=== PATIENT | male | born 1955 | race Caucasian/White ===

== ENCOUNTER → 2019-09-06 14:14 | Outpatient (BNVA) | payer MEDICARE, OTHER, SELFPAY | PROVIDERS: Family Provider Family Medicine; PCP Nurse Practitioner Family; Visit Provider Otolaryngology | DX: J31.0 Chronic rhinitis (principal); H60.63 Unspecified chronic otitis externa, bilateral; H90.5 Unspecified sensorineural hearing loss; G47.33 Obstructive sleep apnea (adult) (pediatric); K21.9 Gastro-esophageal reflux disease without esophagitis | CPT/HCPCS: 96372; 99214 ==

== ENCOUNTER 2019-09-28 07:59 | Outpatient (CLI) | payer MEDICARE, OTHER, SELFPAY ==
--- NOTE | 2019-09-28 08:05 | US_ITS ---
WS: [id number] Complete ABDOMINAL ULTRASOUND HISTORY: FATTY LIVER COMPARISON: None available. Liver: 14.0 cm in length. Liver is normal size and echogenicity with no mass or intrahepatic dilatati on. Gallbladder: Normally distended with no gallstones, wall thickening or pericholecystic fluid. Gallbladder wall thickness: 4.0 mm. Pancreas: Not well visualized. CBD: 2.0 mm. Right kidney: 10.4 cm x 6.2 cm x 5.5 cm. No mass, cortical thickening or hydronephrosis. Left kidney: 12.4 cm x 7.1 cm x 6.8 cm. No mass, cortical thickening or hydronephrosis. Spleen: Spleen is slightly enlarged at 13.6 cm. Abdominal aorta and IVC are within normal limits. No ascites. US/US abdomen complete* [id number] IMPRESSION: 1. No cholelithiasis. 2. Spleen is top limits normal size. 3. Abdomen negative.
== END 2019-09-28 08:00 | disposition home or self-care (01) ==
PROVIDERS: Family Provider Family Medicine; PCP Nurse Practitioner Family; Visit Provider Family Medicine
DX: K76.0 Fatty (change of) liver, not elsewhere classified (principal)
CPT/HCPCS: 76700

== ENCOUNTER 2019-10-26 14:10 | Outpatient (CLI) | payer MEDICARE, OTHER, SELFPAY ==
--- NOTE | 2019-10-26 14:20 | USCV_ITS ---
Caio Tena Age: 64 Gender: M : 1955 Exam Date: 10/26/2019 14:28 Ordering Phys: Joaquín Mitchell MD Technologist: Santo Owusu Exam Location: [facility] Indication: ? ENLARGED HEART BP: 130 / 80 HR: 77 Rhythm: Sinus Technical Quality: Fair MEASUREMENTS (Male / Female) Normal Values 2D ECHO LV Diastolic Diameter PLAX 4.6 cm 4.2 - 5.9 / 3.9 - 5.3 cm LV Systolic Diameter PLAX 2.7 cm IVS Diastolic Thickness 1.1 cm 0.6 - 1.0 / 0.6 - 0.9 cm IVS Systolic Thickness 1.6 cm LVPW Diastolic Thickness 1.1 cm 0.6 - 1.0 / 0.6 - 0.9 cm LVPW Systolic Thickness 1.8 cm LVOT Diameter 2.1 cm LV Ejection Fraction 2D Teich 71.7 % LV Ejection Fraction MOD 2C 78.8 % LV Ejection Fraction 2C AL 78.3 % LA Diameter 4.5 cm LA Width 3.9 cm LA Height 3.9 cm RA Width 3.5 cm RA Height 4.4 cm Aorta at Sinotubular Diameter 3.5 cm M-MODE LV Diastolic Diameter MM 4.8 cm 4.2 - 5.9 / 3.9 - 5.3 cm LV Systolic Diameter MM 3.1 cm LV Ejection Fraction MM Teich 65.0 % IVS Diastolic Thickness MM 0.9 cm 0.6 - 1.0 / 0.6 - 0.9 cm IVS Systolic Thickness MM 1.9 cm LVPW Diastolic Thickness MM 1.4 cm 0.6 - 1.0 / 0.6 - 0.9 cm LVPW Systolic Thickness MM 1.8 cm RV Diastolic Diameter MM 2.1 cm Aortic Annulus Diameter 3.8 cm LA Ao Ratio MM 1.2 MV E Point Septal Separation 0.8 cm DOPPLER AV Peak Velocity 132.0 cm/s LVOT Peak Velocity 90.0 cm/s AV Area Cont Eq vti 2.5 cm squared AV Area Cont Eq pk 2.4 cm squared MV Area PHT 5.0 cm squared Mitral E to A Ratio 0.8 MV E' Velocity 10.0 cm/s Mitral E to MV E' Ratio 7.5 Mitral E to LV E' Lateral Ratio 6.2 Mitral E to LV E' Septal Ratio 9.4 TR Peak Velocity 258.0 cm/s TR Peak Gradient 26.6 mmHg Right Atrial Pressure 3.0 mmHg Pulmonary Artery Systolic Pressu 29.6 mmHg FINDINGS Left Ventricle Normal left ventricular cavity size. Normal left ventricular systolic function. No regional wall motion abnormalities. Left ventricular ejection fraction is estimated at 65 %. Abnormal (paradoxical) septal motion consistent with postoperative status or conduction abnormality. Right Ventricle The right ventricle is normal in size and function. Right Atrium The right atrium is normal in size. Left Atrium The left atrium is normal in size. Mitral Valve Structurally normal mitral valve without significant stenosis or prolapse. There is no mitral regurgitation. Aortic Valve Structurally normal aortic valve without significant sclerosis or stenosis. There is no aortic regurgitation. Tricuspid Valve Trace tricuspid valve regurgitation. Pulmonic Valve Structurally normal pulmonic valve without significant stenosis. There is no pulmonic regurgitation. Pericardium Normal pericardium without effusion. Aorta Normal ascending aorta dimension. CONCLUSIONS 1-Normal left ventricular cavity size. Normal left ventricular systolic function. No regional wall motion abnormalities. Left ventricular ejection fraction is estimated at 65 %. Abnormal (paradoxical) septal motion consistent with postoperative status or conduction abnormality. 2-There is no pericardial effusion. 3-Pulmonary artery systolic pressure is within normal limits. 4-No significant valve abnormalities. 5-Right atrial pressure is around 5 mm of mercury. 6-No significant change since the prior echocardiogram study of. 03/16/2017. Caity Temple MD (Electronically Signed) Final Date: 26 October 2019 16:18 S
--- NOTE | 2019-10-26 14:20 | CT_ITS ---
WS: [id number] CT CHEST TECHNIQUE: Noncontrast CT of the chest with coronal and sagittal reformatted images. CLINICAL INFORMATION: PULMONARY NODULE COMPARISON: September 21, 2018 DLP: 1043.[address] scans at [facility] use at least one of these dose optimization techniques: automat ed exposure control; mA and/or kV adjustment per patient size (includes targeted exams where dose is matched to clinical indication); or iterative reconstruction. FINDINGS: Again seen are several noncalcified subcentimeter pulmonary nodules in the left lower lobe measuring 5 mm, groundglass nodules right lower lobe laterally measuring 6 mm and 4 mm respectively. Additional submillimeter noncalcified subpleural nodule in the lingula measuring 7 mm is unchanged. Mild chronic emphysematous changes. No acute pulmonary infiltrates. Coronary calcification. Aortic ca lcification. No mediastinal or hilar lymphadenopathy. Normal GE junction. Adrenal glands are normal. Several partially visualized hepatic cysts appears unchanged. No axillary lymphadenopathy. Thoracic curve. CT/CT chest wo con [id number] IMPRESSION: 1. Stable subcentimeter noncalcified pulmonary nodules in the left lower lobe and right lower lobe laterally unchanged. 2. Additional subpleural nodule in the lingula measuring 7 mm unchanged. 3. No acute pulmonary infiltrates. 4. No mediastinal or hilar lymphadenopathy. 5. Stable partially visualized hepatic cysts.
== END 2019-10-26 14:11 | disposition home or self-care (01) ==
LOC: CT 14:15
PROVIDERS: Family Provider Family Medicine; PCP Nurse Practitioner Family; Visit Provider Family Medicine
DX: I07.1 Rheumatic tricuspid insufficiency (principal); R91.8 Other nonspecific abnormal finding of lung field; K76.89 Other specified diseases of liver
CPT/HCPCS: 71250; 93306

== ENCOUNTER 2020-02-29 13:48 | Outpatient (CLI) | payer MEDICARE, OTHER, SELFPAY ==
--- NOTE | 2020-02-29 14:15 | USCV_ITS ---
Caio Tena Age: 64 Gender: M : 1955 Exam Date: 02/29/2020 13:51 Ordering Phys: Caity Temple MD ([email or web address]) Technologist: Santo Owusu Exam Location: [facility] – [place] Indication: LIFESTYLE LIMITING CLAUDICATION RIGHT LEFT Brachial 148.00 mmHg Brachial 138.00 mmHg Pressure (mmHg) Waveform Pressure (mmHg) Waveform 160.00 ANNUAL GIVING MANAGER 166.00 142.00 DPA 151.00 0.96 Ankle/Brachial Index 1.02 0.91 Pre-Exercise Toe Pressure 0.99 FINDINGS Normal resting ABIs laterally Normal resting TBI bilaterally CONCLUSIONS No significant arterial obstruction, based on the above findings Dr Clementina Lee MD [facility] (Electronically Signed) Final Date: 29 February 2020 20:33 S
== END 2020-02-29 13:49 | disposition home or self-care (01) ==
LOC: RAD 13:53
PROVIDERS: Visit Provider Internal Medicine Cardiovascular Disease
DX: I73.9 Peripheral vascular disease, unspecified (principal)
CPT/HCPCS: 93922

== ENCOUNTER 2020-04-11 09:41 | Outpatient (RCR) | payer MEDICARE, OTHER, SELFPAY | END 2020-04-21 23:59 | disposition home or self-care (01) | LOC: SPT 09:41 | PROVIDERS: Referring Provider Family Medicine; Visit Provider Family Medicine | DX: M47.817 Spondylosis without myelopathy or radiculopathy, lumbosacral region (principal) | CPT/HCPCS: 97032; 97110; 97161 ==

== ENCOUNTER 2020-04-22 06:00 | Outpatient (RCR) | payer MEDICARE, OTHER, SELFPAY | END 2020-05-21 23:59 | disposition home or self-care (01) | LOC: SPT 06:00 | PROVIDERS: Referring Provider Family Medicine; Visit Provider Family Medicine | DX: M47.817 Spondylosis without myelopathy or radiculopathy, lumbosacral region (principal) | CPT/HCPCS: 97032; 97110 ==

== ENCOUNTER 2020-07-14 06:48 | Outpatient (CLI) | payer MEDICARE, OTHER, SELFPAY ==
--- NOTE | 2020-07-14 06:56 | US_ITS ---
WS: [id number] Complete ABDOMINAL ULTRASOUND HISTORY: PANCYTOPENIA COMPARISON: 09/28/2019 Liver: 20.4 cm in length. Moderately enlarged liver with severe hepatic steatosis. Portions of the li bharati are not well visualized due to attenuation. No bile duct dilatation. Simple cyst in the central R IGHT lobe with a maximum diameter of 1.9 cm. Gallbladder: Normally distended with no gallstones, wall thickening or pericholecystic fluid. Gallbladder wall thickness: 0.2 cm. Pancreas: Normal size and echogenicity. CBD: 0.6 cm. Right kidney: 11.0 cm x 5.4 cm x 7.3 cm. No mass, cortical thickening or hydronephrosis. Left kidney: 11.0 cm x 4.3 cm x 5.6 cm. No mass, cortical thickening or hydronephrosis. Spleen: Enlarged spleen measuring 14.8 cm. Spleen has slightly increased in size since 09/28/2019. Abdominal aorta and IVC are within normal limits. No ascites. US/US abdomen complete* [id number] IMPRESSION: 1. Mild splenomegaly. Spleen has increased in size slightly since 09/28/2019. 2. Moderate hepatomegaly and marked hepatic steatosis. Findings are new since 09/28/2019.
== END 2020-07-14 06:49 | disposition home or self-care (01) ==
LOC: US 06:50 → RAD 07:07
PROVIDERS: Visit Provider Family Medicine
DX: D61.818 Other pancytopenia (principal); R16.1 Splenomegaly, not elsewhere classified; R16.0 Hepatomegaly, not elsewhere classified; K76.0 Fatty (change of) liver, not elsewhere classified
CPT/HCPCS: 76700

== ENCOUNTER 2020-11-17 10:56 | Outpatient (CLI) | payer MEDICARE, OTHER, SELFPAY ==
--- NOTE | 2020-11-17 11:04 | CT_ITS ---
WS: [id number] LDCT LUNG CANCER SCREENING HISTORY: HX OF TOBACCO USE TECHNIQUE: Axial imaging performed from the apices to 1 cm below the costophrenic angles. Coronal and sagittal reformats are submitted with axial MIP series. All CT scans at [facility] use at least one of these dose optimization techniques: automated exposure control; mA and/or kV adjustment per patient size (includes targeted exams where dose is matched to clinical indication); or iterativ e reconstruction. DLP: 60.52 mGy.cm DIvol: 1.58 mGy COMPARISON: 10/26/2019, 01/16/2016 Diagnostic quality: Satisfactory Lung Nodules: There are several bilateral pulmonary nodules. These nodules have been present since without increase in size of any significance. 5 mm nodule image 109 of series 3 RIGHT lung. RIGHT lower lobe nodule 4 mm, image 176 of series 3. 6 mm RIGHT lower lobe nodule, image 187 of series 3. Lingular nodule 5 mm, image 40 series 601. 5 mm nodule LEFT lower lobe 182 series 3. 5 mm nodule LEFT lower lobe image 167 series 3. Lungs: Mild emphysema. Heart: Normal size heart. Moderate coronary vascular calcifications. Other findings: Mild atherosclerosis aorta. CT/CT lung screening [id number] IMPRESSION: LUNG-RADS: 2-Benign Appearance or Behavior FOLLOW UP: 12 Month: Continue annual screening with LDCT OTHER FINDINGS (S MODIFIER): None.
== END 2020-11-17 10:57 | disposition home or self-care (01) ==
PROVIDERS: PCP Family Medicine; Visit Provider Family Medicine
DX: Z12.2 Encounter for screening for malignant neoplasm of respiratory organs (principal); Z87.891 Personal history of nicotine dependence; I70.0 Atherosclerosis of aorta
CPT/HCPCS: 71271

== ENCOUNTER 2020-12-01 10:07 | Outpatient (CLI) | payer MEDICARE, OTHER, SELFPAY ==
--- NOTE | 2020-12-01 10:09 | MM_ITS ---
WS: [id number] BILATERAL DIGITAL DIAGNOSTIC MAMMOGRAM MAMMOGRAPHY WITH CAD CLINICAL INFORMATION: BREAST TENDERNESS HISTORY: COMPARISON: TECHNIQUE: Bilateral CC, MLO, and ML views. FINDINGS: Scattered fibroglandular densities bilaterally. Palpable marker right breast. Dense breast tissue underlying the palpable marker in the subareolar di stribution. This is new compared to 2018 and asymmetric compared to the left. Ultrasound is pending. Left breast is similar in appearance to 2018. ULTRASOUND BREAST BILATERAL TECHNIQUE: Ultrasound bilateral breast focused area of concern. CLINICAL INFORMATION: BREAST TENDERNESS COMPARISON: None. FINDINGS: Prominent dense hypoechoic breast tissue right breast at the areola. This is in a subareolar distribu tion with some increased vascularity. No well-circumscribed cystic or solid lesion. Similar-appearing hypoechoic left breast tissue but much less extensive compared to the right. FINDINGS ARE MOST COMPATIBLE WITH RIGHT BREAST GYNECOMASTIA. MASTITIS CAN HAVE A SIMILAR APPEARANCE A ND RECOMMEND CORRELATION FOR INFECTION. MM/[place] [id number] IMPRESSION: BI-RADS: 2-Benign FOLLOW UP: See Report
== END 2020-12-01 10:08 | disposition home or self-care (01) ==
LOC: RADSHAW 10:09
PROVIDERS: PCP Family Medicine; Visit Provider Family Medicine
DX: N64.4 Mastodynia (principal)
CPT/HCPCS: 76642; 77066

== ENCOUNTER 2021-02-02 14:28 | Outpatient (CLI) | payer MEDICARE, OTHER, SELFPAY ==
--- NOTE | 2021-02-02 14:33 | XR_ITS ---
WS: [id number] Exam: XR hip LT 2-3V wo/w pel* [id number] Date/Time of Exam: 02/02/2021 2:39 PM Reason For Exam: HIP PAIN No fracture or dislocation. Moderate degenerative change of the joint compartment. Normal soft tissue s. Decompression laminectomy and interbody fusion partially visualized involving the lumbosacral spin e. Impression 1. Moderate DJD. No fracture or dislocation.
== END 2021-02-02 14:29 | disposition home or self-care (01) ==
PROVIDERS: PCP Family Medicine; Visit Provider Family Medicine
DX: M25.552 Pain in left hip (principal); M16.12 Unilateral primary osteoarthritis, left hip
CPT/HCPCS: 73502

== ENCOUNTER 2021-03-19 07:53 | Outpatient (CLI) | payer MEDICARE, OTHER, SELFPAY ==
--- NOTE | 2021-03-19 08:00 | US_ITS ---
WS: [id number] ULTRASOUND ABDOMEN CLINICAL INFORMATION: STEALOSIS OF LIVER COMPARISON: None. FINDINGS: Liver Size: Enlarged Craniocaudal length: 18.3 cm. Echogenicity: Diffuse fatty infiltration of the liver Surface nodularity: None. Mass (size and location): Slightly complex hepatic cyst measuring 2.7 x 1.7 x 1.7 cm unchanged from t he prior ultrasound July 14, 2020 Bile ducts Intrahepatic ducts: Normal. Common bile duct diameter: 0.5 cm. Gallbladder Normal. Gallstones: None. Gallbladder sludge: None. Gallbladder wall thickening: None. Pericholecystic fluid: None. Sonographic Wadsworth sign: Absent. Pancreas Normal as visualized. Spleen Splenomegaly: Enlarged Craniocaudal length: 13.7 cm. Right kidney: Simple right mid renal cyst measuring 1.9 x 1.4 1.8 cm Hydronephrosis: None. Size: 10.4 cm x 5.0 cm x 5.3 cm Left kidney: Normal. Hydronephrosis: None. Size: 12.7 cm x 4.3 cm x 6.2 cm. Abdominal aorta and IVC Visualized portions are normal. Ascites: None. US/US abdomen complete* [id number] IMPRESSION: 1. Hepatomegaly with diffuse fatty infiltration. 2. Mild splenomegaly. 3. Normal gallbladder. 4. Slightly complex hepatic cyst measuring 2.7 x 1.7 x 1.7 cm unchanged from t he prior ultrasound July 14, 2020. Multiple hepatic cysts visualized on kirk or chest CT October 26, 2019. 5. Simple right mid renal cyst measuring 1.9 x 1.4 1.8 cm
== END 2021-03-19 07:54 | disposition home or self-care (01) ==
PROVIDERS: PCP Family Medicine; Visit Provider Family Medicine
DX: K76.0 Fatty (change of) liver, not elsewhere classified (principal); R16.0 Hepatomegaly, not elsewhere classified; K76.89 Other specified diseases of liver; N28.1 Cyst of kidney, acquired
CPT/HCPCS: 76700

== ENCOUNTER 2021-03-25 06:00 | Outpatient (RCR) | payer MEDICARE, OTHER, SELFPAY | END 2021-04-21 23:59 | disposition home or self-care (01) | LOC: SPT 06:00 | PROVIDERS: PCP Family Medicine; Referring Provider Surgery; Visit Provider Surgery | DX: M54.10 Radiculopathy, site unspecified (principal); Z98.1 Arthrodesis status; M48.061 Spinal stenosis, lumbar region without neurogenic claudication | CPT/HCPCS: 97110; 97162 ==

== ENCOUNTER → 2021-04-02 10:06 | Outpatient (BNVA) | payer MEDICARE, OTHER, SELFPAY | PROVIDERS: PCP Family Medicine; Visit Provider Podiatrist Foot & Ankle Surgery | DX: M79.671 Pain in right foot (principal); L60.0 Ingrowing nail; M19.071 Primary osteoarthritis, right ankle and foot | CPT/HCPCS: 73630 ==

== ENCOUNTER 2021-04-22 06:00 | Outpatient (RCR) | payer MEDICARE, OTHER, SELFPAY | END 2021-05-21 23:59 | disposition home or self-care (01) | LOC: SPT 06:00 | PROVIDERS: PCP Family Medicine; Referring Provider Surgery; Visit Provider Surgery | DX: M54.10 Radiculopathy, site unspecified (principal); Z98.1 Arthrodesis status; M48.061 Spinal stenosis, lumbar region without neurogenic claudication | CPT/HCPCS: 97110 ==

== ENCOUNTER 2021-06-23 10:43 | Outpatient (CLI) | payer MEDICARE, OTHER, SELFPAY ==
--- NOTE | 2021-06-23 11:14 | XR_ITS ---
WS: [id number] LUMBAR SPINE: 5 VIEWS TECHNIQUE: AP, lateral, and L5-S1 spot. Lateral views in neutral, flexion and extension. HISTORY: S/P SPINAL arthrodesis, BACK PAIN, LUMBAR STENOSIS COMPARISON: None available. Posterior lumbar fusion extends from L2 to S1. Hardware is intact. No lucency around the screws. No c hange in position of alignment with flexion and extension of the hardware. L2 retrolisthesis by 8mm d ecreases to 6 mm during flexion and extension. L3 retrolisthesis by 7 mm decreases to 4 mm during fle xion and 5 mm during extension. Asymmetric disc space narrowing at L1-2 Mild narrowing of the SI joints. Large laminectomy defects are noted from L2 to L5. Moderate atherosclerosis aorta. XR/XR lumbar spine min 4V [id number] IMPRESSION: 1. Extensive posterior lumbar fusion from L2 to S1. 2. Severe facet joint arthritis at L5-S1. 3. Large laminectomy defects from L2 to L5. 4. Mild flexion and extension instability at L2 and L3.
== END 2021-06-23 10:44 | disposition home or self-care (01) ==
PROVIDERS: PCP Family Medicine; Visit Provider Nurse Practitioner Family
DX: Z98.1 Arthrodesis status (principal); M47.817 Spondylosis without myelopathy or radiculopathy, lumbosacral region; M53.2X6 Spinal instabilities, lumbar region
CPT/HCPCS: 72110

== ENCOUNTER 2021-08-13 08:04 | Outpatient (CLI) | payer MEDICARE, OTHER, SELFPAY ==
--- NOTE | 2021-08-13 08:38 | XR_ITS ---
WS: [id number] THORACIC SPINE TECHNIQUE: 3 views of the thoracic spine CLINICAL INFORMATION: ACUTE MIDLINE THORACIC BACK PAIN COMPARISON: None. FINDINGS: Mild thoracic curve. Mild disc space narrowing in the lower thoracic spine. No acute appearing compre ssion fractures. No acute thoracic spine findings. XR/XR thoracic spine 2V [id number] IMPRESSION: No acute thoracic spine findings.
== END 2021-08-13 08:05 | disposition home or self-care (01) ==
PROVIDERS: PCP Family Medicine; Visit Provider Family Medicine
DX: M54.6 Pain in thoracic spine (principal)
CPT/HCPCS: 72070

== ENCOUNTER 2021-11-19 10:29 | Outpatient (CLI) | payer MEDICARE, OTHER, SELFPAY ==
--- NOTE | 2021-11-19 10:30 | IR_ITS ---
WS: [id number] MYELOGRAM LUMBAR SPINE Fluoroscopic guided lumbar myelogram CLINICAL INFORMATION: M54.9 - Dorsalgia, unspecified COMPARISON: None. TECHNIQUE: The procedure, including risks, benefits, and complications, were discussed with the patie nt who agreed to proceed. A timeout was performed to confirm correct patient, procedure, and site. Using sterile technique, the patient was prepped and draped in the usual sterile fashion. After admin istration of local anesthesia using 1% preservative-free lidocaine a 5 inch 22-gauge spinal needle wa s advanced towards the subarachnoid space at the L3-L4 level. I could not achieve intrathecal flow at this level. L2-L3 level was then selected. Using fluoroscopic guidance, a 22-gauge spinal needle was advanced int o the subarachnoid space at the L2-L3 level. Subsequently 13 cc of Omnipaque 240 was administered int o the thecal sac. The needle was removed and hemostasis was achieved. Spot fluoroscopic images were o btained. FLUOROSCOPIC TIME: 6.2 minutes. # of spot films: 4. Spot fluoroscopic images demonstrate interval postoperative changes pedicle screw fixation L2-L5 with interconnecting rods dorsally. Dorsal lateral bony fusion with laminectomy defects. Hardware appears intact. See impression for additional fluoroscopy detail. IR/IR myelogram sp lumbar [id number] IMPRESSION: 1. Uncomplicated lumbar myelogram at the L2-L3 level. 2. Interval postoperative changes pedicle screw fixation with dorsolateral bon y fusion is new from previous. Hardware appears intact. 3. Degenerative disc disease throughout the lumbar spine appears slightly prog ressed compared to previous. 4. Increased loss of disc space height at L1-L2 with vacuum disc phenomenon an d slight kyphosis at this level. 5. Slight retrolisthesis L2 on L3, L3 on L4 and L4 on L5. Mild instability at the L2-L3 L3-L4 and L4-L5 levels with flexion extension. 6. Aortic calcification. 7. Laminectomy defects L2-L5.
--- NOTE | 2021-11-19 10:41 | CT_ITS ---
WS: [id number] CT LUMBAR SPINE TECHNIQUE: Contrast-enhanced CT of the lumbar spine with coronal and sagittal reformatted images. CLINICAL INFORMATION: DORSALGIA, UNSPECIFIED COMPARISON: Myelogram September 03, 2020 DLP: 1377.[address] scans at [facility] use at least one of these dose optimization techniques: automated e xposure control; mA and/or kV adjustment per patient size (includes targeted exams where dose is matc hed to clinical indication); or iterative reconstruction. FINDINGS: Satisfactory opacification of the thecal sac. Small amount of epidural contrast injection a t the L2 level. Postoperative changes are new compared to previous. Pedicle screw fixation L2-L5 with interconnecting rods. Dorsal laminectomy defects. Dorsolateral bone graft material. No evidence of screw loosening. Interconnecting rods appear intact. Clumping of the cauda equina nerve rootlets centrally L2-L4 appea rs new compared to September 03, 2020 suspicious for arachnoiditis. Degenerative disc disease at L2-L3 and L3-L4 appears progressed compared to previous. Trace anterolisthesis L4 on L5. L1-L2: Disc desiccation with vacuum disc phenomenon. Mild disc bulging. Slight effacement of ventral thecal sac. Mild to moderate LEFT and no significant RIGHT foraminal narrowing. Small LEFT foraminal protrusion. Moderate facet arthropathy with ligamentum flavum flavum hypertrophy. L2-L3: Postoperative changes. Disc osteophyte complex with endplate ridging. Spinal canal has been de compressed with laminectomy defects. Foramen are patent. L3-L4: Disc osteophyte complex endplate ridging. Postoperative changes laminectomy defects. Spinal ca nal is patent. Mild LEFT and no significant RIGHT foraminal narrowing. Moderate facet arthropathy. L4-L5: Pedicle screw fixation laminectomy defects. Spinal canal is patent. Mild LEFT foraminal narrow ing. L5-S1: Postoperative changes with laminectomy defects. Spinal canal is patent. Vacuum disc phenomenon . Mild to moderate bilateral bony foraminal narrowing. Moderate facet arthropathy. Visualized lung bases are well aerated. Lobulated infrarenal abdominal aorta with eccentric ulcerated plaque or pseudoaneurysm just above the bifurcation. This can be followed up with CTA Abdominal aort a. Ectatic aorta measures 2.3 x 2.6 cm AP by transverse. Partially visualized adrenal glands appear n ormal. Visualized pelvic bony structures: Normal. Paravertebral soft tissues: Normal. CT/CT lumbar spine w con [id number] IMPRESSION: 1. Interval postoperative changes pedicle screw fixation L2-S1. Hardware and i nterconnecting rods appear intact. No evidence of screw loosening. 2. Sparse dorsal lateral bony fusion appears immature or incomplete. No bony b ridging across the disc spaces. 3. Increased disc desiccation L1-L2 with vacuum disc phenomenon and slight rev ersal of the normal lumbar lordosis with slight kyphosis above the fusion. 4. Decompressive laminectomies throughout the lumbar spine L2-L5 with spinal c anal decompression. 5. Clumping of the cauda equina nerve rootlets centrally suspicious for arachn oiditis L2-L4 new compared to the prior myelogram in 2020. 6. Bony foraminal narrowing worse L5-S1 with mild to moderate bilateral bony f oraminal narrowing encroaches on the exiting L5 nerve roots bilaterally. 7. Small LEFT foraminal protrusion L1-L2 with mild to moderate LEFT foraminal narrowing. Recommend correlation with L1 nerve root symptoms. 8. Mild LEFT L3-L4 and LEFT L4-L5 foraminal narrowing. 9. Moderate facet arthropathy throughout the lumbar spine L2-L5. 10. Small pseudoaneurysm or ulcerated atheromatous plaque in the infrarenal ab dominal aorta. Slightly ectatic lobulated infrarenal abdominal aorta measuring 2.6 x 2.3 CM. This can be followed up with CTA abdominal aorta. This appears un changed since prior myelogram September 03, 2020
[2021-11-19] MEDS: iohexol 240 mg/mL 50 mL Btl INTRATHECA (11:56)
== END 2021-11-19 10:30 | disposition home or self-care (01) ==
LOC: RAD 10:35
PROVIDERS: PCP Family Medicine; Visit Provider Orthopaedic Surgery
DX: M54.9 Dorsalgia, unspecified (principal); G89.29 Other chronic pain; Z98.1 Arthrodesis status; M51.26 Other intervertebral disc displacement, lumbar region; M47.896 Other spondylosis, lumbar region; M51.36 Other intervertebral disc degeneration, lumbar region; M53.2X6 Spinal instabilities, lumbar region; I70.0 Atherosclerosis of aorta
CPT/HCPCS: 62304; 72120; 72132

== ENCOUNTER → 2021-12-02 07:42 | Outpatient (BNVA) | payer MEDICARE, OTHER, SELFPAY | PROVIDERS: PCP Family Medicine; Visit Provider Podiatrist Foot & Ankle Surgery | DX: M20.21 Hallux rigidus, right foot (principal); M92.62 Juvenile osteochondrosis of tarsus, left ankle; Z87.891 Personal history of nicotine dependence | CPT/HCPCS: 73630; 99213; 99214 ==

== ENCOUNTER → 2021-12-03 10:36 | Outpatient (BNVA) | payer MEDICARE, OTHER, SELFPAY | PROVIDERS: PCP Family Medicine; Visit Provider Orthopaedic Surgery | DX: M48.02 Spinal stenosis, cervical region (principal); M40.209 Unspecified kyphosis, site unspecified | CPT/HCPCS: 99214 ==

== ENCOUNTER → 2021-12-09 08:23 | Outpatient (BNVA) | payer MEDICARE, OTHER, SELFPAY | PROVIDERS: PCP Family Medicine; Referring Provider Orthopaedic Surgery; Visit Provider Anesthesiology Pain Medicine | DX: G89.29 Other chronic pain (principal); M54.2 Cervicalgia; M79.601 Pain in right arm; M79.602 Pain in left arm; M54.50 Low back pain, unspecified; Z87.891 Personal history of nicotine dependence; Z79.891 Long term (current) use of opiate analgesic | CPT/HCPCS: 99205 ==

== ENCOUNTER 2022-01-13 12:07 | Outpatient (CLI) | payer MEDICARE, OTHER, SELFPAY ==
--- NOTE | 2022-01-13 12:21 | CT_ITS ---
WS: [id number] LDCT LUNG CANCER SCREENING HISTORY: PULMONARY NODULE TECHNIQUE: Axial imaging performed from the apices to 1 cm below the costophrenic angles. Coronal and sagittal reformats are submitted with axial MIP series. All CT scans at [facility] use at least one of these dose optimization techniques: automated exposure control; mA and/or kV adjustment per patient size (includes targeted exams where dose is matched to clinical indication); or iterativ e reconstruction. DLP: 92.07 mGy.cm DIvol: Mean CTDIvol: 1.60 (mGy) COMPARISON: 11/17/2020 Diagnostic quality: Satisfactory Lung Nodules: Bilateral subcentimeter pulmonary nodules are stable since 2016. None of the nodules wh ich have been previously described has increased in size. Some of these nodules actually appears smal ler. Lungs: Hyperinflation. Heart: Normal size heart. No pericardial effusion. Extensive coronary artery calcifications. Other findings: Small hiatal hernia. Hepatic cysts. No adrenal mass. CT/CT lung screening [id number] IMPRESSION: LUNG-RADS: 2-Benign Appearance or Behavior FOLLOW UP: 12 Month: Continue annual screening with LDCT OTHER FINDINGS (S MODIFIER): None.
== END 2022-01-13 12:08 | disposition home or self-care (01) ==
LOC: RAD 12:11
PROVIDERS: PCP Family Medicine; Visit Provider Family Medicine
DX: Z12.2 Encounter for screening for malignant neoplasm of respiratory organs (principal); Z87.891 Personal history of nicotine dependence; R91.8 Other nonspecific abnormal finding of lung field
CPT/HCPCS: 71271

== ENCOUNTER → 2022-02-23 12:03 | Outpatient (BNVA) | payer MEDICARE, OTHER, SELFPAY | PROVIDERS: PCP Family Medicine; Visit Provider Internal Medicine Cardiovascular Disease | DX: I25.10 Atherosclerotic heart disease of native coronary artery without angina pectoris (principal); I10 Essential (primary) hypertension; I73.9 Peripheral vascular disease, unspecified; G47.33 Obstructive sleep apnea (adult) (pediatric); Z87.891 Personal history of nicotine dependence | CPT/HCPCS: 99213 ==

== ENCOUNTER → 2022-03-08 08:45 | Outpatient (BNVA) | payer MEDICARE, OTHER, SELFPAY | PROVIDERS: PCP Family Medicine; Visit Provider Anesthesiology Pain Medicine | DX: G89.29 Other chronic pain (principal); M54.2 Cervicalgia; M54.9 Dorsalgia, unspecified; M79.601 Pain in right arm; M79.602 Pain in left arm; Z87.891 Personal history of nicotine dependence; Z79.891 Long term (current) use of opiate analgesic | CPT/HCPCS: 99214 ==

== ENCOUNTER → 2022-04-01 10:46 | Outpatient (BNVA) | payer MEDICARE, OTHER, SELFPAY | PROVIDERS: PCP Family Medicine; Visit Provider Family Medicine | DX: I25.10 Atherosclerotic heart disease of native coronary artery without angina pectoris (principal); I10 Essential (primary) hypertension; K21.9 Gastro-esophageal reflux disease without esophagitis; G47.33 Obstructive sleep apnea (adult) (pediatric); M54.2 Cervicalgia; M54.9 Dorsalgia, unspecified; G89.29 Other chronic pain; M10.9 Gout, unspecified; E11.9 Type 2 diabetes mellitus without complications | CPT/HCPCS: 80053; 80061; 83036; 84443; 84550; 85025 ==

== ENCOUNTER → 2022-06-08 08:48 | Outpatient (BNVA) | payer MEDICARE, OTHER, SELFPAY | PROVIDERS: PCP Family Medicine; Visit Provider Anesthesiology Pain Medicine | DX: G89.29 Other chronic pain (principal); M54.2 Cervicalgia; M54.50 Low back pain, unspecified; M79.601 Pain in right arm; M79.602 Pain in left arm | CPT/HCPCS: 99213 ==

== ENCOUNTER → 2022-08-31 12:34 | Outpatient (BNVA) | payer MEDICARE, OTHER, SELFPAY | PROVIDERS: PCP Family Medicine; Visit Provider Internal Medicine Cardiovascular Disease | DX: I25.10 Atherosclerotic heart disease of native coronary artery without angina pectoris (principal); F41.1 Generalized anxiety disorder; F41.0 Panic disorder [episodic paroxysmal anxiety]; I73.9 Peripheral vascular disease, unspecified; I10 Essential (primary) hypertension; G47.33 Obstructive sleep apnea (adult) (pediatric); Z87.891 Personal history of nicotine dependence | CPT/HCPCS: 99213 ==

== ENCOUNTER → 2022-11-22 09:36 | Outpatient (BNVA) | payer MEDICARE, OTHER, SELFPAY | PROVIDERS: PCP Family Medicine; Visit Provider Family Medicine | DX: F41.1 Generalized anxiety disorder (principal); F41.0 Panic disorder [episodic paroxysmal anxiety]; D51.0 Vitamin B12 deficiency anemia due to intrinsic factor deficiency; I10 Essential (primary) hypertension; M1A.09X0 Idiopathic chronic gout, multiple sites, without tophus (tophi); Z12.5 Encounter for screening for malignant neoplasm of prostate | CPT/HCPCS: 80053; 80061; 82607; 84550; 85025; G0103 ==

== ENCOUNTER → 2023-01-25 09:17 | Outpatient (BNVA) | payer MEDICARE, OTHER, SELFPAY | PROVIDERS: PCP Family Medicine; Visit Provider Anesthesiology Pain Medicine | DX: G89.29 Other chronic pain (principal); M54.2 Cervicalgia; M48.07 Spinal stenosis, lumbosacral region | CPT/HCPCS: 99214 ==

== ENCOUNTER → 2023-02-15 12:30 | Outpatient (BNVA) | payer MEDICARE, OTHER, SELFPAY | PROVIDERS: PCP Family Medicine; Visit Provider Anesthesiology Pain Medicine | DX: M47.816 Spondylosis without myelopathy or radiculopathy, lumbar region (principal); M54.2 Cervicalgia; G89.29 Other chronic pain | CPT/HCPCS: 64490; 64491; 64493; J3490 ==

== ENCOUNTER → 2023-03-01 12:57 | Outpatient (BNVA) | payer MEDICARE, OTHER, SELFPAY | PROVIDERS: PCP Family Medicine; Visit Provider Anesthesiology Pain Medicine | DX: G89.29 Other chronic pain (principal); M47.814 Spondylosis without myelopathy or radiculopathy, thoracic region; M54.2 Cervicalgia | CPT/HCPCS: 64490; 64491; 64492; J3490 ==

== ENCOUNTER → 2023-03-07 09:53 | Outpatient (BNVA) | payer MEDICARE, OTHER, SELFPAY | PROVIDERS: PCP Family Medicine; Visit Provider Family Medicine | DX: I25.10 Atherosclerotic heart disease of native coronary artery without angina pectoris (principal); I10 Essential (primary) hypertension; Z12.2 Encounter for screening for malignant neoplasm of respiratory organs; Z87.891 Personal history of nicotine dependence; M79.641 Pain in right hand; M79.642 Pain in left hand; G56.21 Lesion of ulnar nerve, right upper limb; M54.2 Cervicalgia; M54.9 Dorsalgia, unspecified; G89.29 Other chronic pain; D51.0 Vitamin B12 deficiency anemia due to intrinsic factor deficiency; D69.6 Thrombocytopenia, unspecified; M10.9 Gout, unspecified | CPT/HCPCS: 80053; 82607; 82746; 83036; 84550; 85025 ==

== ENCOUNTER → 2023-03-14 10:36 | Outpatient (BNVA) | payer MEDICARE, OTHER, SELFPAY | PROVIDERS: PCP Family Medicine; Visit Provider Anesthesiology Pain Medicine | DX: G89.29 Other chronic pain (principal); M54.2 Cervicalgia; M79.601 Pain in right arm; M79.602 Pain in left arm | CPT/HCPCS: 99214 ==

== ENCOUNTER 2023-03-15 15:29 | Outpatient (CLI) | payer MEDICARE, OTHER, SELFPAY ==
--- NOTE | 2023-03-15 15:00 | CT_ITS ---
WS: [id number] LDCT LUNG CANCER SCREENING HISTORY: Lung CA screening TECHNIQUE: Axial imaging performed from the apices to 1 cm below the costophrenic angles. Coronal and sagittal reformats are submitted with axial MIP series. All CT scans at [facility] use at least one of these dose optimization techniques: automated exposure control; mA and/or kV adjustment per patient size (includes targeted exams where dose is matched to clinical indication); or iterativ e reconstruction. DLP: 178.00 mGy.cm DIvol: Mean CTDIvol: 4.20 (mGy) COMPARISON: 01/13/2022 Diagnostic quality: Satisfactory Lungs: Multiple bilateral pulmonary nodules are stable over multiple prior years. The largest nodule is noncalcified measuring 7 mm in the RIGHT lower lobe. No endobronchial lesions. No pneumonia. Heart: Normal size heart with no pericardial effusion.. Moderate coronary artery calcifications. Other findings: Mild atherosclerosis aorta. Bilateral gynecomastia. No adrenal mass. Mild hepatic alverto atosis. Mild straightening and curvature thoracic spine. CT/CT lung screening [id number] IMPRESSION: LUNG-RADS: 2S-Benign Appearance or Behavior with Significant Findings FOLLOW UP: 12 Month: Continue annual screening with LDCT OTHER FINDINGS (S MODIFIER): Moderate coronary artery calcifications.
== END 2023-03-15 15:30 | disposition home or self-care (01) ==
LOC: RAD 15:30
PROVIDERS: PCP Family Medicine; Visit Provider Family Medicine
DX: Z12.2 Encounter for screening for malignant neoplasm of respiratory organs (principal); Z87.891 Personal history of nicotine dependence
CPT/HCPCS: 71271; 99214

== ENCOUNTER 2023-03-21 07:14 | Outpatient (CLI) | payer MEDICARE, OTHER, SELFPAY ==
--- NOTE | 2023-03-21 07:30 | USCV_ITS ---
Caio Tena Age: 67 Gender: M : 1955 Exam Date: 03/21/2023 07:33 Ordering Phys: Gi Chaparro MD ([email or web address]) Technologist: CT Exam Location: [facility] [place] Indication: pvd Risk Factors: Previous Vascular Surgery: RIGHT LEFT BP: 120.0 / 70.00 BP: 125.0/ 69.00 0 0 Waveform Velocity (cm/s) Velocity (cm/s) Waveform Triphasic 85.6 Iliac Prox 76.2 Triphasic Triphasic 84.7 Iliac Mid 104.2 Triphasic Triphasic 85.2 Iliac Distal 94.5 Triphasic Triphasic 90.5 HOSPITAL ADMISSIONS OFFICER 93.1 Triphasic Triphasic 95.9 SFA Prox 95.3 Triphasic Triphasic 80.8 SFA Mid 69.3 Triphasic Triphasic SFA Dist Triphasic 71.6 59.5 Triphasic 48.6 POP 41.4 Triphasic Triphasic RAIL TRANSPORTATION OPERATOR 56.8 Triphasic Triphasic 62.5 DPA 72.0 Triphasic 1.0 ANDREW 1.0 FINDINGS Mild diffuse plaques in the iliac and femoral arteries bilaterally Normal Doppler flow velocities and waveforms Resting ANDREW 1.0 bilaterally CONCLUSIONS 1. Normal resting ABIs bilaterally with a normal Doppler waveforms and velocities, suggesting no significant arterial obstruction. 2. Mild diffuse plaque in the iliac and femoral arteries bilaterally. Dr Clementina Lee MD [facility] (Electronically Signed) Final Date: 21 March 2023 19:25 S
[2023-03-21 08:30] LABS: Anion Gap 14.5 (5-19); Blood Urea Nitrogen 24 mg/dL (8-23); Calcium 8.7 mg/dL (8.5-10.5); Carbon Dioxide 28 mmol/L (22-29); Chloride 102 mmol/L (98-107); Glomerular Filtration Rate 50.2 mL/min (90-130); Glucose 116 mg/dL (65-115); Osmolality Calculated 295 mOsm/kg (285-295); Potassium 4.5 mmol/L (3.5-5.1); Sodium 140 mmol/L (136-145)
== END 2023-03-21 07:15 | disposition home or self-care (01) ==
PROVIDERS: PCP Family Medicine; Visit Provider Internal Medicine Cardiovascular Disease
DX: E87.5 Hyperkalemia (principal); I73.9 Peripheral vascular disease, unspecified; M79.604 Pain in right leg; M79.605 Pain in left leg
CPT/HCPCS: 36415; 80048; 93925

== ENCOUNTER → 2023-04-07 14:39 | Outpatient (BNVA) | payer MEDICARE, OTHER, SELFPAY | PROVIDERS: PCP Family Medicine; Visit Provider Anesthesiology Pain Medicine | DX: M46.1 Sacroiliitis, not elsewhere classified (principal); G89.29 Other chronic pain; M54.2 Cervicalgia; M54.9 Dorsalgia, unspecified | CPT/HCPCS: 20610; 27096; 77002; J1030; J3490 ==

== ENCOUNTER → 2023-07-05 09:17 | Outpatient (BNVA) | payer MEDICARE, OTHER, SELFPAY | PROVIDERS: PCP Family Medicine; Visit Provider Family Medicine | DX: D69.6 Thrombocytopenia, unspecified (principal); M10.9 Gout, unspecified; I10 Essential (primary) hypertension | CPT/HCPCS: 80053; 84550; 85027 ==

== ENCOUNTER → 2023-08-30 09:34 | Outpatient (BNVA) | payer MEDICARE, OTHER, SELFPAY | PROVIDERS: PCP Family Medicine; Referring Provider Family Medicine; Visit Provider Physician Assistant | DX: S83.8X1A Sprain of other specified parts of right knee, initial encounter; X58.XXXA Exposure to other specified factors, initial encounter | CPT/HCPCS: 73560; 73565; 99213 ==

== ENCOUNTER 2023-09-22 06:47 | Outpatient (CLI) | payer MEDICARE, OTHER, SELFPAY ==
--- NOTE | 2023-09-22 07:15 | MR_ITS ---
WS: [id number] MRI RIGHT KNEE NONCONTRAST TECHNIQUE: Axial PD, coronal PD fat sat, coronal PD, sagittal PD, and sagittal PD fat-sat images obta ined. CLINICAL INFORMATION: knee pain COMPARISON: None. FINDINGS: Distal quadriceps and patella tendons are intact. Small suprapatellar effusion. Normal ACL and PCL. C omplex tear the posterior horn medial meniscus extending to the meniscal root. Blunting of the menisc al root. Horizontal tear extends to the peripheral articular surface. Peripheral extrusion of the med ial meniscus. Lateral meniscus appears intact. Lobulated popliteal cyst measuring 4.9 x 1.6 cm. Mild chondromalacia patella. Normal medial and later al patellar retinaculum. Moderate tricompartment arthritis. Hypertrophic patella. Distal quadriceps t endon enthesophyte at the patellar insertion. Nonossifying fibroma distal lateral femoral metadiaphys is with normal T1 fatty marrow signal. Normal medial lateral collateral ligaments. IMPRESSION: 1. Normal ACL and PCL. 2. Complex tear involving the medial meniscus extending to the meniscal root and peripheral articula r surface with blunting and peripheral extrusion. 3. Moderate to advanced tricompartmental arthritis with grade III chondromalacia medial joint compar tment. 4. Lobulated popliteal cyst measuring 4.9 x 1.6 cm. 5. Small suprapatellar effusion. 6. Hypertrophic patella with distal quadriceps enthesophyte. Outbridge grading: grade III: partial-thickness cartilage loss with focal ulceration
== END 2023-09-22 06:48 | disposition home or self-care (01) ==
LOC: RAD 06:47
PROVIDERS: PCP Family Medicine; Visit Provider Physician Assistant
DX: M17.11 Unilateral primary osteoarthritis, right knee (principal); S83.231A Complex tear of medial meniscus, current injury, right knee, initial encounter; X58.XXXA Exposure to other specified factors, initial encounter; M22.41 Chondromalacia patellae, right knee; M71.21 Synovial cyst of popliteal space [Baker], right knee
CPT/HCPCS: 73721

== ENCOUNTER → 2023-09-30 07:57 | Outpatient (BNVA) | payer MEDICARE, OTHER, SELFPAY | PROVIDERS: PCP Family Medicine; Visit Provider Physician Assistant | DX: S83.8X1A Sprain of other specified parts of right knee, initial encounter (principal); M17.11 Unilateral primary osteoarthritis, right knee; X58.XXXA Exposure to other specified factors, initial encounter | CPT/HCPCS: 99213 ==

== ENCOUNTER → 2023-10-11 15:47 | Outpatient (BNVA) | payer MEDICARE, OTHER, SELFPAY | PROVIDERS: PCP Family Medicine; Visit Provider Family Medicine | DX: M1A.09X0 Idiopathic chronic gout, multiple sites, without tophus (tophi) (principal); I10 Essential (primary) hypertension; D69.6 Thrombocytopenia, unspecified | CPT/HCPCS: 80053; 84550; 85027 ==

== ENCOUNTER → 2024-02-07 14:40 | Outpatient (BNVA) | payer MEDICARE, OTHER, SELFPAY | PROVIDERS: PCP Family Medicine; Visit Provider Podiatrist Foot & Ankle Surgery | DX: M20.21 Hallux rigidus, right foot | CPT/HCPCS: 73630; 99214 ==

== ENCOUNTER 2024-04-06 05:56 | Day surgery (SDC) | payer MEDICARE, OTHER, SELFPAY ==
[2024-04-06] VITALS (8 sets, daily range): BP systolic 92–123; BP diastolic 61–72; PULSE 60–67; RESP 12–18; TEMP 36.1–36.9; O2SAT 90–97; BMI 39.2
--- NOTE | 2024-04-06 | XR_ITS ---
WS: [id number] INTRAOPERATIVE TECHNIQUE: 1 Spot fluoroscopic images for intraoperative purposes. FLUOROSCOPY TIME: 1 seconds CLINICAL INFORMATION: [facility] PICS FINDINGS: Images obtained for intraoperative localization purposes. XR/XR foot RT 2V [id number] IMPRESSION: Images obtained for intraoperative purposes.
--- NOTE | 2024-04-06 05:55 | P.HPUD_ITS ---
Surgery/Procedure H&P Update DATE OF PROCEDURE: April 06, 2024 DATE H&P PERFORMED: 04/06/24 H&P UPDATE INFORMATION: I have reviewed H&P completed within last 30 days, I have examined patient prior to procedure, No changes to prior documentation and H&P is in [facility] EMR on date indicated PLANNED PROCEDURE: Operation Date: 04/06/24 07:00 Proposed Procedures p Cheilectomy(Right) - Jay Rodriguez DPM
--- NOTE | 2024-04-06 05:56 | P.HP_ITS ---
Providers/Chief Complaint Primary Care Provider: Jamil Dempsey DO Chief Complaint: M79.671, M20.21 History of Present Illness Caio Tena is a 68 year old male here for evaluation of his right great toe pain and swelling. He states that the pain has gradually worsened over the years. His pain is reproduced with standing and walking. He does experience pain with tight shoes. He has been taking [place] for pain/discomfort. He is already been wearing supportive shoes, taking anti-inflammatories and his pain is significant affecting his overall quality of life, he would like to discuss surgical options. Patient denies any subjective nausea, vomiting, fever, chills, shortness of breath or chest pain. Review of Systems General: Reports: 10 or more systems reviewed and unremarkable except in HPI and below Const: Denies: fever(s) or chills Eyes: Denies: change in vision Card: Denies: chest pain or palpitations Resp: Denies: dyspnea or productive cough GI: Denies: abdominal pain, nausea or vomiting : Denies: flank pain Musc: Reports: extremity pain, joint pain, joint stiffness, limited range of motion and deformity Skin/Breast: Reports: skin tenderness; Denies: rash Neuro: Reports: difficulty walking; Denies: numbness in extremities, sensory changes or frequent falls Psych: Denies: suicidal ideation Naveen/Lymph: Denies: easy bruising Medications/Allergies Home Medications Medication Instructions Recorded Confirmed Last Taken Type febuxostat 40 mg tablet (Uloric) 40 mg PO .twice weekly Gout #90 04/13/23 04/05/24 04/04/24 Rx tabs diclofenac sodium 1 % topical gel 2 g topical QID #100 grams 09/30/23 04/05/24 Unknown Rx (Voltaren Arthritis Pain) diazepam 5 mg tablet 5 mg PO DAILY #30 tabs 10/13/23 04/05/24 04/05/24 Rx carvedilol 12.5 mg tablet (Coreg) 12.5 mg PO BID #180 tabs 12/02/23 04/05/24 04/05/24 Rx esomeprazole magnesium 40 mg 40 mg PO DAILY #90 caps 03/05/24 04/05/24 04/05/24 Rx capsule,delayed release (Nexium) bupropion HCl 300 mg 24 hr tablet, 300 mg PO QAM #90 tabs 03/13/24 04/05/24 04/05/24 Rx extended release (Wellbutrin XL) hydrocodone 10 mg-acetaminophen 1 tab PO Q6H 30 days #120 tabs 03/19/24 04/05/24 04/05/24 Rx 325 mg tablet pregabalin 300 mg capsule 300 mg PO BID #180 caps 03/22/24 04/05/24 04/05/24 Rx fluoxetine 10 mg capsule 10 mg PO DAILY 04/05/24 04/05/24 04/05/24 History Allergies Allergy/AdvReac Type Severity Reaction Status Date / Time No Known Allergies Allergy Verified 02/07/24 14:37 PFSH PFSH: Medical History CAD (coronary artery disease) Hypertension Family History Father Parkinson disease Heart disease Liver disease Grandmother Cancer Social History Smoking and tobacco/nicotine status: former use of tobacco/nicotine Alcohol intake: current Alcohol intake frequency: holidays/special occasions only Alcohol type: beer and hard liquor Substance/Drug Use: never Marital status: Current occupational status: retired Dietary Habits: Caffeine: Yes Physical Exam Narrative: EXAM NARRATIVE: GENERAL: Patient is alert and oriented ?3 and in no acute distress. The following is a focused bilateral lower extremity exam. VASCULAR: Dorsalis pedis and posterior tibial arteries palpable +2. Capillary refill time less than 3 seconds to the distal hallux bilaterally. Calf is supple and nontender proximally and distally. No pedal edema appreciated. Pedal hair growth present. NEUROLOGICAL: Epicritic and protopathic sensations grossly intact to the lower extremities. +2 Achilles tendon reflex noted bilaterally. Negative Tinel sign upon percussion of lower extremity nerves. DERMATOLOGICAL: Nail spicule at the left hallux medial and lateral border is regrowth is dystrophic and thickened with discoloration. No open wounds. No erythema, warmth or drainage to the lower extremities. No warmth or erythema at the right first metatarsophalangeal joint. MUSCULOSKELETAL: First metatarsal phalangeal joint dorsiflexion 10 degrees to the right with crepitus and pain. Osseous prominence dorsally and medially at the right first metatarsal phalangeal joint. Right first metatarsal phalangeal joint dorsiflexion 15 degrees with osseous end range of motion and pain. CARDIOVASCULAR: S1, S2, normal rate, normal rhythm. Dorsalis pedis and posterior tibial arteries palpable. LUNGS: Clear to auscltation, no use of acessory muscles, no crackles or wheezes. A&P Assessment and plan (1) Hallux rigidus, right foot: (2) Right foot pain: Plan 68-year-old male presents with hallux rigidus unresponsive to conservative treatments consisting of supportive shoes, stretching, anti-inflammatories and activity modifications. Has pain daily with everyday activities like to discuss surgical options. X-ray right foot 3 views taken weightbearing 02/07/2024 shows subchondral sclerosing, dorsal bossing and joint space narrowing with widening of the first metatarsal head and squaring off of the first metatarsal head of the right foot. Discussed cheilectomy versus arthrodesis patient would like to proceed with cheilectomy and [place]. Scheduled April 13, 2024. I reviewed at length with the patient, the risks, potential complications, benefits, alternatives, expectations, and typical outcomes associated with the surgery. The risks and potential complications were explained in detail, including but not limited to infection, wound dehiscence or soft tissue complications, bleeding and hematoma, chronic edema, neuritis or nerve damage producing numbness or chronic pain, CRPS, failure to relieve pain or worsening pain, thick / painful / unsightly scar, limited motion / stiffness, malposition, delayed union, malunion, or nonunion, fracture, reaction to implants, anesthetic complications, venous thromboembolism, and deformity recurrence. I discussed the notion of no regrets with the patient as it pertains to complications and outcomes. The patient seemed to understand the nature of the proposed care and required convalescence. They asked appropriate questions, answered to their satisfaction. They are aware no guarantees can be made as to a satisfactory outcome and they understand there may be other possible unforeseen complications or outcomes not listed here that will be treated accordingly if they arise. There were no written or implied guarantees given to the patient. They gave informed consent to proceed. Schedule outpatient surgery under local MAC cheilectomy right first metatarsophalangeal joint April 13, 2024 Richard, supine, mini C arm, no hardware Coding Level of Care Code Acute Code for Chg Fwd Diagnoses Hallux rigidus, right foot M20.21 Right foot pain M79.671
[2024-04-06] MEDS: CELEcoxib 200 mg Capsule 400 MG PO (06:25)
[2024-04-06] MEDS: sodium chloride 0.9% 1,000 ML 30 ML IV (06:26)
--- NOTE | 2024-04-06 06:44 | PM.OP ---
Operative Report Date of procedure: April 06, 2024 Pre-op diagnosis: Right foot pain M79.671 and Hallux rigidus, right foot M20.21 Post-op diagnosis: Right foot pain M79.671 and Hallux rigidus, right foot M20.21 Procedure done: Cheilectomy right foot. CPT code 52098 Implants: 3-0 Vicryl, 4-0 Vicryl, 4 nylon Specimens removed/disposition: None Pathology: None Surgeon: Jay Rodriguez DPM Senior Software Test Engineer: Yves Estimated blood loss: 2 17 IV fluids: see intraoperative documentation Urine output: No urine output Complications: No complications Brief History: 68-year-old male presents with hallux rigidus unresponsive to conservative treatments consisting of supportive shoes, stretching, anti-inflammatories and activity modifications. Has pain daily with everyday activities like to discuss surgical options. X-ray right foot 3 views taken weightbearing 02/07/2024 shows subchondral sclerosing, dorsal bossing and joint space narrowing with widening of the first metatarsal head and squaring off of the first metatarsal head of the right foot. Discussed cheilectomy versus arthrodesis patient would like to proceed with cheilectomy and [place]. Scheduled April 13, 2024. I reviewed at length with the patient, the risks, potential complications, benefits, alternatives, expectations, and typical outcomes associated with the surgery. The risks and potential complications were explained in detail, including but not limited to infection, wound dehiscence or soft tissue complications, bleeding and hematoma, chronic edema, neuritis or nerve damage producing numbness or chronic pain, CRPS, failure to relieve pain or worsening pain, thick / painful / unsightly scar, limited motion / stiffness, malposition, delayed union, malunion, or nonunion, fracture, reaction to implants, anesthetic complications, venous thromboembolism, and deformity recurrence. I discussed the notion of no regrets with the patient as it pertains to complications and outcomes. The patient seemed to understand the nature of the proposed care and required convalescence. They asked appropriate questions, answered to their satisfaction. They are aware no guarantees can be made as to a satisfactory outcome and they understand there may be other possible unforeseen complications or outcomes not listed here that will be treated accordingly if they arise. There were no written or implied guarantees given to the patient. They gave informed consent to proceed. Procedure: The patient was brought to the operating room and placed in the supine position. After appropriate anesthesia was administered, a pneumatic tourniquet was applied to the right lower extremity. The right foot was prepped and draped in the usual sterile fashion. A dorsal incision approximately [insert length] centimeters in length was made over the first MTP joint, centered over the joint line. Dissection was carried down through the subcutaneous tissues, taking care to protect neurovascular structures. The joint capsule was identified and incised, exposing the underlying osteophytes and joint surfaces. Inspection of the joint confirmed the presence of significant dorsal osteophytes and joint degeneration consistent with hallux rigidus. A rongeur and osteotome were used to remove the dorsal osteophytes from the first metatarsal head. The joint was then irrigated with copious amounts of sterile saline to remove debris and improve visualization. After excision of the bony prominence, the range of motion of the first MTP joint was assessed intraoperatively and found to be improved. Attention was then directed to the closure. Closure: The capsule was closed with interrupted 3-0 Vicryl sutures. The subcutaneous tissues were reapproximated using 4-0 Vicryl sutures in a running fashion. The skin was closed with interrupted 4-0 nylon sutures. Dressing consisting of Adaptic, sterile 4 x 4's, Kerlix and Ravinder wrap applied along with postop shoe. Tourniquet was deflated and a prompt hyperemic response is noted to the distal digits of the right foot. Patient tolerated the procedure and anesthesia well and was transferred to the PACU with vital signs stable and vascular status intact. Following a period of postoperative monitoring patient will be discharged home may be weightbearing as tolerated with limited activity below threshold of pain, given at home care instructions and scheduled follow-up as well as myself number to contact with any postoperative questions or concerns.
--- NOTE | 2024-04-06 06:56 | P.ANESASSM_ITS ---
Pre-Anesthetic Assessment Height/Weight: Height 1.78 m Weight 123.831 kg Temp Pulse Resp BP Pulse Ox O2 Del Method 97.0 F L 67 16 123/72 94 Room Air 04/06/24 06:16 04/06/24 06:16 04/06/24 06:16 04/06/24 06:16 04/06/24 06:16 04/06/24 06:16 Preop Diagnosis: Right hallux rigidus Operation Date: 04/06/24 07:00 Proposed Procedures p Cheilectomy(Right) - Jay Rodriguez DPM Last intake: Intake Last Liquid Date 04/05/24 Last Liquid Time 18:00 Last Solid Date 04/05/24 Last Solid Time 18:00 Social No alcohol and No tobacco Exam alert, oriented x 3, clear to auscultation bilaterally and regular rate & rhythm Airway Submandibular: within normal limits Cervical ROM: Other (limited ) Mallampati: Class II Pulmonary Sleep Apnea CV/HEM Coronary Artery Disease and Hypertension GI Gastroesophageal Reflux Disease (well controlled ) Metabolic Gout Neuropsych Anxiety Anesthetic Plan ASA status: 3 Anesthesia: MAC Medications/Allergies Home Medications Medication Instructions Recorded Confirmed Last Taken Type febuxostat 40 mg tablet (Uloric) 40 mg PO .twice weekly Gout #90 04/13/23 0 04/06/24 04/04/24 Rx tabs diclofenac sodium 1 % topical gel 2 g topical QID #100 grams 09/30/23 04/06/24 Unknown Rx (Voltaren Arthritis Pain) diazepam 5 mg tablet 5 mg PO DAILY #30 tabs 10/13/23 04/06/24 04/05/24 Rx carvedilol 12.5 mg tablet (Coreg) 12.5 mg PO BID #180 tabs 12/02/23 04/06/24 04/06/24 Rx esomeprazole magnesium 40 mg 40 mg PO DAILY #90 caps 03/05/24 04/06/24 04/05/24 Rx capsule,delayed release (Nexium) bupropion HCl 300 mg 24 hr tablet, 300 mg PO QAM #90 tabs 03/13/24 04/06/24 04/06/24 Rx extended release (Wellbutrin XL) hydrocodone 10 mg-acetaminophen 1 tab PO Q6H 30 days #120 tabs 03/19/24 04/06/24 04/05/24 Rx 325 mg tablet pregabalin 300 mg capsule 300 mg PO BID #180 caps 03/22/24 04/06/24 04/06/24 Rx fluoxetine 10 mg capsule 10 mg PO DAILY 04/05/24 04/06/24 04/06/24 History Allergies Allergy/AdvReac Type Severity Reaction Status Date / Time No Known Allergies Allergy Verified 02/07/24 14:37 Current Medications Generic Name Dose Route Start Last Admin Trade Name Freq PRN Reason Stop Dose Admin Sodium Chloride 1,000 mls @ 30 mls/hr 04/06/24 06:15 04/06/24 06:26 Sodium Chloride 0.9% IV 04/07/24 06:14 30 mls/hr .Q24H HANNAH Administration PFSH Anesthesia Medical History CAD (coronary artery disease) Hypertension Family History Father Parkinson disease Heart disease Liver disease Grandmother Cancer Social History Smoking and tobacco/nicotine status: former use of tobacco/nicotine Alcohol intake: current Alcohol intake frequency: holidays/special occasions only Alcohol type: beer and hard liquor Substance/Drug Use: never Marital status: Current occupational status: retired Data Anesthesia Cardiac Studies: Echocardiogram Ultrasound 10/26/19
[2024-04-06] MEDS: ceFAZolin 3,000 MG in sodium chloride 0.9% (plus) 100 ML 200 MG IV (06:58)
[2024-04-06] MEDS: BUPivacaine liposome 13.3 mg/mL SDV 20 mL 266 MG INFILTRATI (07:29)
[2024-04-06] MEDS: BUPivacaine 0.5% INJ 10 mL 20 ML INJECTION (07:29)
--- NOTE | 2024-04-06 07:46 | ANE.PACU2 ---
Inpatient post-anesthesia follow up: Airway intact: Yes Vital signs: Temperature 97.0 F Pulse Rate 67 Respiratory Rate 16 Blood Pressure 123/72 Pulse Oximetry 94 Oxygen Delivery Me thod Room Air Oxygen Flow Rate 6 Fraction of Inspir ed Oxygen Hydration adequate: Yes Nausea and vomiting: No Pain level: 1 Mental status: Baseline
--- NOTE | 2024-04-06 09:20 | P.BOP_ITS ---
Date of Procedure: 11/04/23 Surgeon: Jay Rodriguez DPM Automotive Worker(s): Yves Procedure(s) performed: Right cheilectomy Findings of the procedure(s): Osteoarthritis right first metatarsal phalangeal joint Estimated blood loss: 2 mL Specimen(s) removed: No specimens Post-operative diagnosis: Hallux rigidus, right No complications with anesthesia or surgery. Local MAC. 17-minute tourniquet time
== END 2024-04-06 08:40 | disposition home or self-care (01) ==
PROVIDERS: PCP Family Medicine; Visit Provider Podiatrist Foot & Ankle Surgery
PROC: (CPT 28289; principal; 2024-04-06 07:00)
DX: M20.21 Hallux rigidus, right foot (principal); G47.30 Sleep apnea, unspecified; I25.10 Atherosclerotic heart disease of native coronary artery without angina pectoris; I10 Essential (primary) hypertension; K21.9 Gastro-esophageal reflux disease without esophagitis; F41.9 Anxiety disorder, unspecified; Z87.891 Personal history of nicotine dependence
CPT/HCPCS: 28289; 73620; 76000; C9290; J0690; J2704; J3010; J3490; J7030

== ENCOUNTER → 2024-04-19 07:30 | Outpatient (BNVA) | payer MEDICARE, OTHER, SELFPAY | PROVIDERS: PCP Family Medicine; Visit Provider Podiatrist Foot & Ankle Surgery | DX: Z98.890 Other specified postprocedural states (principal) | CPT/HCPCS: 99024 ==

== ENCOUNTER 2024-05-03 12:50 | Outpatient (CLI) | payer MEDICARE, OTHER, SELFPAY ==
--- NOTE | 2024-05-03 13:15 | CT_ITS ---
WS: [id number] LDCT LUNG CANCER SCREENING HISTORY: Screening TECHNIQUE: Axial imaging performed from the apices to 1 cm below the costophrenic angles. Coronal and sagittal reformats are submitted with axial MIP series. All CT scans at [facility] use at least one of these dose optimization techniques: automated exposure control; mA and/or kV adjustment per patient size (includes targeted exams where dose is matched to clinical indication); or iterativ e reconstruction. DLP: 163.00 mGy.cm DIvol: Mean CTDIvol: 4.00 (mGy) COMPARISON: 03/15/2023, 01/13/2022 Diagnostic quality: Satisfactory Lungs: Stable subcentimeter bilateral pulmonary nodules. The largest at the RIGHT lung base is 7 mm. No endobronchial lesions. No pneumonia. Heart: Normal size heart with no pericardial effusion.. Coarse calcification in the coronary arteries . Other findings: Mild atherosclerosis aorta. Mild gynecomastia. Small hiatal hernia. Hypodense masses within the liver. Hepatic cysts have been described on prior exams. Without IV contrast evaluation is limited. No adrenal mass. CT/CT lung screening [id number] IMPRESSION: LUNG-RADS: 2S-Benign Appearance or Behavior with Significant Findings FOLLOW UP: 12 Month: Continue annual screening with LDCT OTHER FINDINGS (S MODIFIER): Low-attenuation masses in the liver. Some of these have increased in size. Cysts have been described on prior imaging studies. Th ella may be hepatic cysts. These can be further when evaluated by ultrasound if clinically thought necessary. Without IV contrast limited evaluation.
== END 2024-05-03 12:51 | disposition home or self-care (01) ==
LOC: RAD 12:51
PROVIDERS: PCP Family Medicine; Visit Provider Family Medicine
DX: Z12.2 Encounter for screening for malignant neoplasm of respiratory organs (principal); Z87.891 Personal history of nicotine dependence; R91.8 Other nonspecific abnormal finding of lung field; I25.10 Atherosclerotic heart disease of native coronary artery without angina pectoris; K44.9 Diaphragmatic hernia without obstruction or gangrene; Q44.6 Cystic disease of liver
CPT/HCPCS: 71271

== ENCOUNTER → 2024-05-31 13:31 | Outpatient (BNVA) | payer MEDICARE, OTHER, SELFPAY | PROVIDERS: PCP Family Medicine; Visit Provider Podiatrist Foot & Ankle Surgery | DX: Z98.890 Other specified postprocedural states (principal); L60.3 Nail dystrophy | CPT/HCPCS: 99213 ==

== ENCOUNTER 2024-06-11 07:25 | Outpatient (CLI) | payer MEDICARE, OTHER, SELFPAY ==
--- NOTE | 2024-06-11 07:45 | US_ITS ---
WS: [id number] RIGHT UPPER QUADRANT ULTRASOUND HISTORY: Hepatic masses COMPARISON: 03/19/2021, 07/14/2020, CT lung screening 05/03/2024 Liver: 20.4 cm in length. Markedly limited evaluation of the liver due to patient's body habitus and severe hepatic steatosis. Only a single cyst is identified measuring 1.2 x 1.1 x 1.1 cm. Portal Vein: Normal hepatopetal flow with monophasic waveform. Gallbladder: Normally distended gallbladder with no stones or wall thickening. CBD: 0.3 cm Pancreas: Not visualized. Right kidney: 10.0 cm in length. Normal size and echogenicity. No hydronephrosis or mass. Aorta and IVC: Unremarkable abdominal aorta and IVC. No ascites. US/US abdomen limited [id number] IMPRESSION: 1. Extremely limited evaluation of the RIGHT upper quadrant in particular the liver due to patient's body habitus. 2. Liver is enlarged with severe hepatic steatosis. The previously described m asses and/or cysts could not be identified adequately. For additional informati on consider follow-up CT or MRI liver with and without contrast. If breath-hold ing is limited, CT would be of better choice than MRI. 3. Negative gallbladder.
== END 2024-06-11 07:26 | disposition home or self-care (01) ==
LOC: RAD 07:25
PROVIDERS: PCP Family Medicine; Visit Provider Family Medicine
DX: R16.0 Hepatomegaly, not elsewhere classified (principal); K76.0 Fatty (change of) liver, not elsewhere classified
CPT/HCPCS: 76705

== ENCOUNTER → 2024-06-14 07:49 | Outpatient (BNVA) | payer MEDICARE, OTHER, SELFPAY | PROVIDERS: PCP Family Medicine; Visit Provider Podiatrist Foot & Ankle Surgery | DX: L60.3 Nail dystrophy (principal) | CPT/HCPCS: 11750 ==

== ENCOUNTER 2024-07-11 06:55 | Outpatient (CLI) | payer MEDICARE, OTHER, SELFPAY ==
--- NOTE | 2024-07-11 07:15 | MR_ITS ---
WS: [id number] MRI ABDOMEN WITH AND WITHOUT CONTRAST. COMPARISON: Ultrasound abdomen 06/11/2024 Multiplanar, multisequence imaging is performed with and without contrast. MultiHance 20 mL IV. Liver is slightly enlarged. There is diffuse dropout of signal on the out of phase sequence consisten t with diffuse moderate hepatic steatosis. Multiple scattered T2 hyperintense and T1 hypointense mass es are identified in the liver. The largest in the LEFT lobe measures 2.5 x 2.3 cm. None of these mas ses enhance. There are no hepatic masses that enhance or suspicious for malignancy. Normal portal vei n. Normal hepatic veins. Gallbladder is normal. Normal common bile duct. Spleen is slightly enlarged measuring 15 cm in length . No adrenal mass. There is a cyst extending posteriorly from the lower pole of the RIGHT kidney. Cyst measures 1.9 x 1. 9 cm. There is no enhancement. No enhancing masses within either kidney. There is no obstruction. Nor mal aorta. Pancreas is negative. The visualized GI tract is negative. No ascites or adenopathy. MR/MR abdomen wo/w con* [id number] IMPRESSION: 1. Numerous simple hepatic cysts scattered throughout the liver. There are no solid masses. 2. Negative gallbladder. 3. Diffuse moderate hepatic steatosis. 4. Mild splenomegaly. 5. Simple cyst lower pole RIGHT kidney, 1.9 x 1.9 cm.
[2024-07-11] MEDS: gadobenate dimeglumine 20 mL vial IV (07:29)
== END 2024-07-11 06:56 | disposition home or self-care (01) ==
PROVIDERS: PCP Family Medicine; Visit Provider Family Medicine
DX: R16.0 Hepatomegaly, not elsewhere classified (principal); Q44.6 Cystic disease of liver; K76.0 Fatty (change of) liver, not elsewhere classified; N28.1 Cyst of kidney, acquired
CPT/HCPCS: 74183

== ENCOUNTER 2024-10-04 13:46 | Outpatient (CLI) | payer MEDICARE, OTHER, SELFPAY ==
[2024-10-04 14:34] LABS: Basophils # 0.1 10^3/uL (0.0-0.1); Basophils % 0.9 %; Eosinophils # 0.2 10^3/uL (0.0-0.8); Eosinophils % 2.5 %; Hematocrit 49.3 % (37-53); Lymphocytes # 1.9 10^3/uL (0.8-4.8); Lymphocytes % 28.8 %; Mean Corpuscular HGB Conc 33.3 g/dL (30-55); Mean Corpuscular Hemoglobin 31.4 pg (27-33); Mean Corpuscular Volume 94.4 fl (82-101); Mean Platelet Volume 10.8 fL (7.4-10.4); Monocytes # 0.6 10^3/uL (0.2-0.9); Monocytes % 9.9 %; Neutrophils # 3.72 10^3/uL (1.8-7.7); Neutrophils % 57.3 %; Nucleated Red Blood Cells % 0 %; Platelet Count 141 10^3/cmm (157-399); Red Blood Count 5.22 10^6/uL (3.85-5.65); Red Cell Distribution Width 13.1 % (12.1-15.1); White Blood Count 6.49 10^3/uL (3.29-11.43)
[2024-10-04 15:14] LABS: 25 Hydroxy Vitamin D 13 ng/mL (30-100); Alanine Aminotransferase 18 U/L (0-41); Albumin Level 4.5 g/dL (3.5-5.2); Alkaline Phosphatase 74 U/L (40-130); Anion Gap 13.9 (5-19); Aspartate Amino Transferase 18 U/L (0-40); Blood Urea Nitrogen 16 mg/dL (8-23); Calcium 9.7 mg/dL (8.5-10.5); Carbon Dioxide 31 mmol/L (22-29); Chloride 102 mmol/L (98-107); Chol HDL Ratio 4.53 mg/dL (1.0-5.00); Cholesterol 204 mg/dL (0-200); Ferritin 269 ng/mL (30-400); Glucose 83 mg/dL (65-115); HDL Cholesterol 45 mg/dL (60-100); Iron 108 ug/dL (59-158); LDL Cholesterol Calculated 131 mg/dL (50-129); LDL HDL Ratio 2.91 RATIO (0.00-3.22); Magnesium 2.2 mg/dL (1.7-2.3); Osmolality Calculated 294 mOsm/kg (285-295); Potassium 4.9 mmol/L (3.5-5.1); Prostate Specific Antigen Scr 1.24 ng/mL (0-4); Sodium 142 mmol/L (136-145); Thyroid Stimulating Hormone 0.87 uIU/mL (0.27-4.20); Total Bilirubin 0.4 mg/dL (0.15-1.2); Total Protein 7.5 g/dL (6.6-8.7); Triglycerides 139 mg/dL (0-150); Uric Acid 10.6 mg/dL (3.4-7.0); Vitamin B12 342 pg/mL (232-1245)
[2024-10-04 15:16] LABS: Folate Level 9.8 ng/mL (4.5-32.2)
== END 2024-10-04 13:47 | disposition home or self-care (01) ==
PROVIDERS: PCP Family Medicine; Visit Provider Family Medicine
DX: E55.9 Vitamin D deficiency, unspecified (principal); D69.6 Thrombocytopenia, unspecified; D51.0 Vitamin B12 deficiency anemia due to intrinsic factor deficiency; G47.33 Obstructive sleep apnea (adult) (pediatric); F41.1 Generalized anxiety disorder; F41.0 Panic disorder [episodic paroxysmal anxiety]; I10 Essential (primary) hypertension; I25.10 Atherosclerotic heart disease of native coronary artery without angina pectoris; R79.89 Other specified abnormal findings of blood chemistry; Z12.5 Encounter for screening for malignant neoplasm of prostate; M1A.09X0 Idiopathic chronic gout, multiple sites, without tophus (tophi)
CPT/HCPCS: 36415; 80053; 80061; 82306; 82607; 82728; 82746; 83540; 83735; 84443; 84550; 85025; G0103

== ENCOUNTER → 2025-01-15 13:44 | Outpatient (BNVA) | payer MEDICARE, OTHER, SELFPAY | PROVIDERS: PCP Family Medicine; Visit Provider Family Medicine | DX: M1A.09X0 Idiopathic chronic gout, multiple sites, without tophus (tophi) (principal); E55.9 Vitamin D deficiency, unspecified; R79.89 Other specified abnormal findings of blood chemistry | CPT/HCPCS: 82306; 84550 ==

== ENCOUNTER → 2025-04-16 13:00 | Outpatient (BNVA) | payer MEDICARE, OTHER, SELFPAY | PROVIDERS: PCP Family Medicine; Visit Provider Family Medicine | DX: D69.6 Thrombocytopenia, unspecified (principal); R79.89 Other specified abnormal findings of blood chemistry; F41.1 Generalized anxiety disorder; F41.0 Panic disorder [episodic paroxysmal anxiety]; I10 Essential (primary) hypertension; E55.9 Vitamin D deficiency, unspecified | CPT/HCPCS: 80053; 82306; 84550; 85025 ==

== ENCOUNTER 2025-07-24 09:10 | Outpatient (CLI) | payer MEDICARE, OTHER, SELFPAY ==
--- NOTE | 2025-07-24 09:15 | CT_ITS ---
WS: [id number] LDCT LUNG CANCER SCREENING TECHNIQUE: Noncontrast CT of the chest with coronal and sagittal reformatted images. CLINICAL INFORMATION: Z87.891 - Personal history of nicotine dependence COMPARISON: 2023 DLP: 178.91 mGy.cm DIvol: Mean CTDIvol: 4.10 (mGy) All CT scans at [facility] use at least one of these dose optimization techniques: automated exposure control; mA and/or kV adjustment per patient size (includes targeted exams where dose is matched to clinical indication); or iterative reconstruction. FINDINGS: Stable subcentimeter bilateral pulmonary nodules. The largest at the RIGHT lung base is 7 mm unchanged compared to previous. Dense coronary calcification. Mild aortic calcification. Small esophageal hiatal hernia. Several low-attenuation hepatic lesions compatible with liver cysts. This is similar to previous. Adrenal glands are normal. CT/CT lung screening [id number] IMPRESSION: LUNG-RADS: 2-Benign Appearance or Behavior FOLLOW UP: 12 Month: Continue annual screening with LDCT
== END 2025-07-24 09:11 | disposition home or self-care (01) ==
LOC: RAD 09:12
PROVIDERS: PCP Family Medicine; Visit Provider Family Medicine
DX: Z12.2 Encounter for screening for malignant neoplasm of respiratory organs (principal); Z87.891 Personal history of nicotine dependence; R91.1 Solitary pulmonary nodule; K76.89 Other specified diseases of liver; K44.9 Diaphragmatic hernia without obstruction or gangrene; R91.8 Other nonspecific abnormal finding of lung field; I70.0 Atherosclerosis of aorta; I25.84 Coronary atherosclerosis due to calcified coronary lesion
CPT/HCPCS: 71271